=== PATIENT | female | born 2000 | race African-American/Black ===

== ENCOUNTER 2022-02-17 15:17 | Emergency (ER) | payer MEDICAID ==
[~2022-02-17] VITALS: Ht 152.4 cm; Wt 60.9 kg
[2022-02-17 15:30] VITALS: BP 108/65; TEMP 97.7
[2022-02-17 16:34] LABS: BASO # 0.1 K/mm3 (0.0-0.2); BASO % 1.9 % (0.0-2.0); EOS # 0.1 K/mm3 (0.0-0.7); EOS % 3.5 % (0.0-4.0); GRAN # 1.6 K/mm3 (1.4-6.5); GRAN % 42.3 % (42.2-75.2); HEMATOCRIT 42.1 % (35.0-45.0); HEMOGLOBIN 13.7 g/dl (12.0-15.0); LYMPH # 1.7 K/mm3 (1.2-3.4); LYMPH % 46.6 % (20.0-51.0); MEAN CELL VOLUME 85 fl (80.0-95.0); MEAN CORPUSCULAR HEMOGLOBIN 28 pg (26-32); MEAN CORPUSCULAR HGB CONC 33 g/dl (33.0-37.0); MEAN PLATELET VOLUME 10.3 fl (7.4-10.4); MONO # 0.2 K/mm3 (0.1-0.6); MONO % 5.7 % (1.7-9.3); PLATELET COUNT 252 K/mm3 (130-400); RED BLOOD COUNT 4.93 M/mm3 (4.10-5.30); REDCELL DISTRIBUTION WIDTH-CV 13.8 % (11.5-14.5)
[2022-02-17 16:45] LABS: C-REACTIVE PROTEIN 0.12 mg/dL (0.00-0.50)
[2022-02-17 17:07] LABS: TSH w REFLEX 2.071 uIU/mL (0.350-4.940)
[2022-02-17 17:11] LABS: COLLECTION METHOD CLEAN CATCH
[2022-02-17 17:19] LABS: PH 6 (5-8); SQUAMOUS EPITHELIAL 0-2 /hpf (0-10); URINE APPEARANCE Clear (CLEAR/HAZY); URINE BACTERIA None Seen /hpf (NONE SEEN); URINE BILIRUBIN Negative (NEGATIVE); URINE BLOOD Negative (NEGATIVE); URINE COLOR Straw (YELLOW); URINE GLUCOSE Negative (NEGATIVE); URINE KETONE Negative (NEGATIVE); URINE LEUKOCYTE ESTERASE Negative (NEGATIVE); URINE NITRATE Negative (NEGATIVE); URINE PROTEIN(semi-quant) Negative (NEGATIVE); URINE RBC 0-2 /hpf (0-2); URINE UROBILINOGEN Negative (NEGATIVE)
[2022-02-17 18:55] VITALS: PULSE 81
== END 2022-02-17 18:57 | disposition home or self-care (01) ==
LOC: COL.ER 15:17
PROVIDERS: Family Medicine
DX: N92.1 Excessive and frequent menstruation with irregular cycle (principal); Z32.02 Encounter for pregnancy test, result negative